=== PATIENT | female | born 1990 | race Caucasian/White ===

== ENCOUNTER 2020-11-02 07:33 | Day surgery (SDC) | payer OTHER ==
[~2020-11-02] VITALS: Ht 175.3 cm; Wt 68.2 kg
[~2020-11-02 07:33] MED LIST: [UNRECOGNIZED DRUG - OTHER]
[2020-11-02 08:09] LABS: HEMATOCRIT 42.8 % (36.0-48.0); HEMOGLOBIN 14.3 g/dL (12-16); MCH 29.4 pg (26.0-34.0); MCHC 33.4 g/dL (31.0-37.0); MCV 88.1 fL (80.0-100.0); MEAN PLATELET VOLUME 10.6 fL (7.4-10.4); RBC 4.86 10x6/uL (4.00-5.40); RDW 13.1 % (11.5-14.5); WBC 8.4 10x3/uL (4.8-10.8)
[2020-11-02 08:27] VITALS: BP 139/79; Ht 175.3 cm; Wt 68.2 kg
[2020-11-02 08:33] LABS: HCG URINE NEGATIVE (NEGATIVE)
== END 2020-11-02 13:15 | disposition home or self-care (01) ==
LOC: D.OPS 07:33
PROVIDERS: Anesthesiology; ATTEND Obstetrics & Gynecology Maternal & Fetal Medicine
DX: R10.2 Pelvic and perineal pain (principal); N94.10 Unspecified dyspareunia; N94.6 Dysmenorrhea, unspecified; N92.0 Excessive and frequent menstruation with regular cycle